=== PATIENT | female | born 1935 | race Caucasian/White ===

== ENCOUNTER 2018-05-17 08:47 | Day surgery (SDC) | payer OTHER ==
[2018-05-17] MEDS ORDERED: LIDOCAINE 1% (MPF) 30 ML INJ (10:25)
[2018-05-17] MEDS ORDERED: LIDOCAINE 2% (SDV) 5 ML INJ (10:27)
[2018-05-17] MEDS ORDERED: PROPOFOL 20 ML (10:27)
[2018-05-17] MEDS ORDERED: SUCCINYLCHOLINE CHLORIDE 100 MG/5 ML SYG IV (10:40)
[2018-05-17] MEDS ORDERED: DEXAMETHASONE 4 MG/ML 5 ML INJ (10:40)
[2018-05-17] MEDS ORDERED: ONDANSETRON 4 MG INJ (10:40)
[2018-05-17] MEDS: LIDOCAINE 1% (MPF) 30 ML INJ INJ (10:46)
[2018-05-17] MEDS ORDERED: EPHEDrine 50 MG INJ (10:58)
[2018-05-17] MEDS ORDERED: NEOSTIGMINE 3 MG/3 ML SYRINGE ×2 (10:58→11:18)
[2018-05-17] MEDS ORDERED: ROCURONIUM 50 MG INJ (10:58)
[2018-05-17] MEDS ORDERED: GLYCOPYRROLATE 1 MG INJ ×2 (10:58→11:19)
[2018-05-17] MEDS ORDERED: hydrALAzine 20 MG INJ (11:16)
[2018-05-17] MEDS ORDERED: SUGAMMADEX SODIUM 200 MG/2 ML VIAL IV (11:19)
[2018-05-17] MEDS ORDERED: ALBUTEROL 0.083% (NEB) 2.5 MG/3 ML AMP (11:34)
[2018-05-17] MEDS: IPRATROPIUM (NEB) 0.5 MG/2.5 ML AMP HHN (11:46)
[2018-05-17] MEDS: ALBUTEROL 0.083% (NEB) 2.5 MG/3 ML AMP HHN (11:47)
[2018-05-17] MEDS ORDERED: LABETALOL HCL 20MG INJ IV (12:00)
[2018-05-17] MEDS ORDERED: ONDANSETRON 4 MG INJ IV (12:00)
[2018-05-17] MEDS ORDERED: hydrALAzine 20 MG INJ IV (12:00)
[2018-05-17] MEDS ORDERED: DIPHENHYDRAMINE 50 MG INJ IV (12:00)
[2018-05-17] MEDS ORDERED: FENTAnyl 50 MCG/ML VIAL IV (12:00)
[2018-05-17] MEDS ORDERED: HYDROmorphONE 1 MG/5 ML IV SYRINGE IV (12:00)
[2018-05-17] MEDS ORDERED: MEPERIDINE 25 MG INJ IV (12:00)
== END 2018-05-17 13:32 | disposition home or self-care (01) ==
LOC: SDS 08:47
DX: C34.92 Malignant neoplasm of unspecified part of left bronchus or lung (principal)
CPT/HCPCS: 31622; 82962; 88104; 88305; 88313; 88341; 88342; 88360; 88377; 94664